=== PATIENT | female | born 1990 | race Caucasian/White ===

== ENCOUNTER 2024-07-16 21:32 | Inpatient (IN) | payer MEDICAID ==
[2024-07-16] MEDS ORDERED: Misoprostol 200 MCG Tab PO PRN (21:57)
[2024-07-16] MEDS ORDERED: Sodium Chloride 0.9% 2.5 ML Syringe FLUSH PRN (21:57)
[2024-07-16] MEDS ORDERED: Sodium Chloride 0.9% 20 ML SDV IV PRN (21:57)
[2024-07-16] MEDS ORDERED: Butorphanol 2 MG/ML SDV IVPUSH PRN (21:57)
[2024-07-16] MEDS ORDERED: Lidocaine 1% 50 ML MDV INJECT PRN (21:57)
[2024-07-16] MEDS ORDERED: Ondansetron 4 MG/2 ML SDV IVPUSH PRN (21:57)
[2024-07-16] MEDS ORDERED: Carboprost Tromethamine 250 MCG/1 mL Vial IM PRN (21:57)
[2024-07-16] MEDS ORDERED: Nalbuphine 10 MG/1 ML Vial IVPUSH PRN (21:57)
[2024-07-16] MEDS ORDERED: Tranexamic Acid IN NACL,ISO-OS 1,000 MG in Premix Bag 1 BAG IV PRN (21:57)
[2024-07-16] MEDS ORDERED: Sodium Chloride 0.9% 10 ML Syringe FLUSH PRN (21:57)
[2024-07-16] MEDS ORDERED: Water For Irrigation,Sterile 1,000 ML Container IRR PRN (21:57)
[2024-07-16] MEDS ORDERED: Lactated Ringers 1,000 ML IV SCH (22:00)
[2024-07-16 22:25] LABS: HEMATOCRIT 38.3 % (37.0-47.0); HEMOGLOBIN 12.7 g/dL (12.0-16.0); MEAN CORPUSCULAR HGB CONC 33.2 g/dL (32.0-36.0); MEAN CORPUSCULAR VOLUME 84.4 fL (83.0-99.0); PLATELET COUNT,PLT 252 K/uL (150-400); RED BLOOD CELL COUNT 4.54 M/uL (4.10-5.30); WHITE BLOOD CELL COUNT,WBC 14.06 K/uL (3.9-11.3)
[2024-07-16] MEDS: Oxytocin/0.9 % Sodium Chloride 30 UNIT/500 ML BAG IV SCH (23:08)
[2024-07-16] MEDS: Methylergonovine 0.2 MG/1 ML Amp IM PRN (23:11)
[2024-07-17] MEDS ORDERED: Lanolin 100% Cream 7 GM Tube TOP PRN (01:01)
[2024-07-17] MEDS ORDERED: Acetaminophen 500 MG Tab PO PRN (01:01)
[2024-07-17] MEDS ORDERED: Docusate Sodium 100 MG Cap PO PRN (01:01)
[2024-07-17] MEDS: Benzocaine/Menthol 20%-0.5% Spray 78 GM Cannister TOP PRN (01:16)
[2024-07-17] MEDS: Ibuprofen 800 MG Tab PO PRN (01:16)
[2024-07-17] MEDS: Witch Hazel Medicated Pads 40/Jar TOP PRN (01:20)
[2024-07-17 06:59] LABS: HEMATOCRIT 39.3 % (37.0-47.0); HEMOGLOBIN 12.9 g/dL (12.0-16.0); MEAN CORPUSCULAR HGB CONC 32.8 g/dL (32.0-36.0); MEAN CORPUSCULAR VOLUME 85.4 fL (83.0-99.0); MEAN PLATELET VOLUME 10.1 fL (9.4-12.3); PLATELET COUNT,PLT 258 K/uL (150-400); WHITE BLOOD CELL COUNT,WBC 17.96 K/uL (3.9-11.3)
== END 2024-07-18 14:20 | disposition home or self-care (01) | DRG 807 ==
LOC: MW.OB 21:32 → MW.OBCHECK 21:32 → MW.OB 21:57 → OBSVTOIN 23:07 → MW.OB 07-17 01:30
PROVIDERS: ADMIT Obstetrics & Gynecology; ATTEND Obstetrics & Gynecology Obstetrics
PROC: 10E0XZZ Delivery of Products of Conception, External Approach (ICD-10-PCS; principal; 2024-07-16)
PROC: 0HQ9XZZ Repair Perineum Skin, External Approach (ICD-10-PCS; 2024-07-16)
DX: O42.02 Full-term premature rupture of membranes, onset of labor within 24 hours of rupture (principal); Z37.0 Single live birth; O70.0 First degree perineal laceration during delivery; O77.0 Labor and delivery complicated by meconium in amniotic fluid; O48.0 Post-term pregnancy; Z3A.40 40 weeks gestation of pregnancy
CPT/HCPCS: 36415; 59025; 59409; 85027; 86592; 86850; 86900; 86901; A9270-GY; J2210; J2590